=== PATIENT | male | born 1970 | race Caucasian/White ===

== ENCOUNTER → 2017-07-25 09:04 | Outpatient (CLI) | payer OTHER, SELFPAY ==
--- NOTE | 2017-07-25 09:07 | RAD_ITS ---
STUDY: X-RAY - RIGHT SHOULDER REASON FOR EXAM: Male, 47 years old. Right shoulder pain TECHNIQUE: 3 view(s) of the shoulder. COMPARISON: None. FINDINGS: Normal glenohumeral articulation. There is degenerative arthrosis of the acromioclavicular joint without inferior osseous spur formation. Normal acromion. Normal humeral head and visualized proximal humerus. The soft tissue structures are unremarkable. Normal visualized pulmonary apex. RAD/Shoulder min 2 Views IMPRESSION: There is degenerative arthrosis of the acromioclavicular joint. Electronically Signed: Yehuda Ga MD at 14:56 EDT Tel , Service support ,
== END ==
PROVIDERS: Family Provider Internal Medicine; PCP Internal Medicine; Visit Provider Orthopaedic Surgery
DX: M25.511 Pain in right shoulder (principal)
CPT/HCPCS: 73030

== ENCOUNTER 2019-05-19 13:14 | Emergency (ER) | payer OTHER, SELFPAY ==
[2019-05-19 13:15] VITALS: BP 109/73; PULSE 85; RESP 18; TEMP 39; O2SAT 94; BMI 36.1
[2019-05-19 13:21] VITALS: BP 130/77; PULSE 105; RESP 20; TEMP 39; O2SAT 98
--- NOTE | 2019-05-19 13:26 | EKG12_ITS ---
Test Reason : Blood Pressure : / mmHG Vent. Rate : 087 BPM Atrial Rate : 087 BPM P-R Int : 152 ms QRS Dur : 096 ms QT Int : 354 ms P-R-T Axes : 037 -39 033 degrees QTc Int : 425 ms Normal sinus rhythm Left axis deviation Abnormal ECG Confirmed by PAULINA MARES, DAVE ([id number]), business editor MONTSE GOOD ([id number]) on 05/21/2019 12:23:15 PM Referred By: CITLALLI Confirmed By:DAVE GALLARDO MD
--- NOTE | 2019-05-19 13:26 | RAD_ITS ---
STUDY: X-RAY CHEST REASON FOR EXAM: Male, 48 years old. cough, body aches/pain x 3 days TECHNIQUE: AP COMPARISON: 07/06/2014 FINDINGS: The lungs are clear and expanded. There is no demonstrated pleural abnormality. Normal size heart. Normal mediastinum and juana. Normal visualized pulmonary arteries. Normal visualized aortic arch and descending thoracic aorta. Normal visualized thoracic spine. Normal visualized ribs, clavicles, and shoulders. There is no demonstrated abnormality of the visualized soft tissue structures of the upper abdomen. RAD/Chest 1 View (Portable) IMPRESSION: Nonacute portable x-ray examination of the chest. Electronically Signed: Manjinder Cole MD (Brooks) at 13:55 EST , Service support ,
--- NOTE | 2019-05-19 13:28 | ED.DCSUM_ITS ---
History of Present Illness Chief Complaint: Weakness Detail of Chief Complaint: Flulike illness, syncope Informant: Patient Onset: Days Context: Gradual Onset Current Severity: Moderate Maximum Severity: Moderate Narrative: Patient presents with flulike illness that started 3 days ago. He states either Tuesday night or morning he started to feel ill. Symptoms have progressed over the past 2 days. He complains of generalized body aches, cough with brown sputum, fever and chills. He presents to the ED to be evaluated on Tuesday afternoon. Patient reportedly went to urgent care. He was feeling like he needed to lie down. He was called back to the room and shortly after standing and walking that the lewis patient a syncopal episode and woke on the floor. Patient admits that he has not been eating and drinking. He reports taking Aleve early this morning. Patient does report getting the flu vaccine this year. - Past Medical History (1) High cholesterol Status: Chronic Past Medical History - Allergies and Home Meds Allergies/Adverse Reactions: Allergies No Known Allergies Allergy (Verified 05/19/19 13:17) Primary Care Physician: Cecily Mejía MD [Primary Care Provider] - Prior records reviewed: Yes Lives: Spouse/ Significant Other Smoking Status: Unknown if ever smoked Review of Systems General: Reports: Chills, Fever Eyes: Denies: Visual changes - bilaterally ENT: Denies: Sore throat Cardiovascular: Denies: Chest pain Respiratory: Reports: Cough, Sputum Gastrointestinal: Denies: Vomiting, Diarrhea Genitourinary: Denies: Dysuria Musculoskeletal: Reports: Myalgias Skin: Denies: Rash Neurological: Reports: Headache, Weakness - Generalized weakness Hematologic: Denies: Easy bruising Allergy: Denies: Uticaria Physical Exam Vital Signs/Narrative: Vital Signs Temp Pulse Resp BP Pulse Ox 05/19/19 13:21 102.2 F H 105 H 20 H 130/77 H 98 05/19/19 13:15 102.2 F H 85 18 109/73 94 Inital Vital Signs reviewed: Yes General: Well nourished, Well developed Head: Normocephalic ENT: TM's clear, Dry mucous membranes, - - Normal posterior pharynx Neck: Supple Cardiovascular: Regular rate, Regular rhythm Respiratory: No distress, CTA bilaterally Abdomen: Soft, Nontender, Hypoactive bowel sounds Extremities: Nontender Skin: Normal color, No rash Neurological: Alert, Oriented x3 Psychological: - - Flat affect Diagnostic/Tx/Re-eval Impressions Chest X-Ray 05/19/19 13:26 IMPRESSION: Nonacute portable x-ray examination of the chest. Electronically Signed: Manjinder Cole MD (Brooks) at 13:55 EST , Service support , 05/19/19 13:26 Chest 1 View (Portable) [RAD] Stat 05/19/19 14:00 Mucosa - Nose Influenza Types A,B Direct FA (URSULA) - Final Influenzae A Laboratory Results 05/19/19 05/19/19 13:40 13:40 WBC 8.4 RBC 4.78 Hgb 14.7 Hct 43.0 MCV 90.0 MCH 30.8 MCHC 34.2 RDW Std Deviation 41.0 RDW Coeff of Mynor 12.3 Plt Count 163 MPV 9.2 Immature Gran % (Auto) 0.200 Neut % (Auto) 71.1 H Lymph % (Auto) 12.0 L [place] % (Auto) 14.3 H Eos % (Auto) 1.9 Baso % (Auto) 0.5 Absolute Neuts (auto) 6.0 Absolute Lymphs (auto) 1.01 Nucleated RBC % 0 Sodium 138 Potassium 3.7 Chloride 106 Carbon Dioxide 27.0 Anion Gap 5 BUN 11 Creatinine 1.34 H Estim Creat Clear Calc 68.85 Est GFR (MDRD) Af Amer 73 Est GFR (MDRD) Non-Af 60 BUN/Creatinine Ratio 8.2 L Glucose 106 Calcium 8.6 - EKG Initial EKG Interpretation: Sinus Rhythm - Sinus 87 with no acute ischemia. - Medical Decision Making Patient is given Tylenol, Toradol, and IV fluids. Repeat temperature is 99.6. Patient has currently had 1 L of IV fluid and and will receive a second full liter prior to discharge. Test results are discussed with patient and at bedside. He is outside the 48-hour window for antiviral treatment. He will continue supportive care. ED Disposition - Plan for ED Patient: Disposition: Home or Assisted Living Diagnosis: Influenza, Syncope Instructions: INFLUENZA (Adult), SYNCOPE, Vasovagal Referrals: Cceily Mejía MD [Primary Care Provider] - 3-5 Days if not improving
[2019-05-19] MEDS: 0.9% Normal Saline 1,000 ML 1000 ML IV ×2 (13:37→14:36)
[2019-05-19] MEDS: Acetaminophen 500 MG Tablet 1000 MG PO (13:37)
[2019-05-19] MEDS: Ketorolac 30 MG/ML Syringe IV (13:37)
[2019-05-19 13:45] LABS: Absolute Lymphocyte Count 1.01 X10^3/uL (0.83-4.51); Basophil# 0.04 X10^3/uL; Basophil% 0.5 % (0-1); Eosinophil# 0.16 X10^3/uL; Eosinophils% 1.9 % (0-5); Hemoglobin 14.7 g/dL (13.0-16.5); Lymphocyte # 1.01 X10^3/ul (4.0); Mean Corp Hgb Conc 34.2 g/dL (32-36); Mean Corpuscular Hgb 30.8 pg (27.0-32.0); Mean Platelet Vol. 9.2 fl (6.2-12.0); Monocyte% 14.3 % (0-10); NRBC Flagged by Analyzer 0 % (0-5); Neutrophil # 5.99 X10^3/uL (2.7-7.7); Neutrophil % 71.1 % (47-70); Platelet Count 163 K/mm3 (150-450); RBC Distribution Width CV 12.3 % (11.6-14.6); Red Blood Count 4.78 M/mm3 (4.6-6.2); White Blood Count 8.4 K/mm3 (4.4-11.0)
[2019-05-19 14:00] LABS: Anion Gap 5 (5-15); BUN 11 mg/dL (7-18); BUN/Creat Ratio 8.2 RATIO (10-20); Calcium,Total 8.6 mg/dL (8.5-10.1); Chloride 106 mmol/L (98-107); Creatinine, Serum 1.34 mg/dL (0.70-1.30); EST Glomerular Filtration Rate 60 mL/min (>60); Est Glom Filt Rate - Afr Amer 73 mL/min (>60); Estimated Creatinine Clearance 68.85 ml/min; Glucose 106 mg/dL (74-106); Potassium 3.7 mmol/L (3.5-5.1); Sodium Level 138 mmol/L (136-145)
[2019-05-19 14:37] VITALS: BP 123/66; PULSE 87; RESP 18; TEMP 37.6; O2SAT 94
[2019-05-19 15:52] VITALS: BP 118/71; PULSE 81; RESP 18; O2SAT 94
== END 2019-05-19 15:53 | disposition home or self-care (01) ==
PROVIDERS: Emergency Provider Emergency Medicine; PCP Internal Medicine
DX: J09.X2 Influenza due to identified novel influenza A virus with other respiratory manifestations (principal); R55 Syncope and collapse; E78.00 Pure hypercholesterolemia, unspecified; Z79.899 Other long term (current) drug therapy
CPT/HCPCS: 71045; 80048; 85025; 87804; 93005; 96361; 96374; 99285; J7030; A4216

== ENCOUNTER → 2019-11-08 | Outpatient (CLI) | payer OTHER, SELFPAY ==
--- NOTE | 2019-11-08 09:21 | EKG12_ITS ---
Test Reason : PRE OP Blood Pressure : / mmHG Vent. Rate : 061 BPM Atrial Rate : 061 BPM P-R Int : 140 ms QRS Dur : 092 ms QT Int : 412 ms P-R-T Axes : 027 -31 005 degrees QTc Int : 414 ms Normal sinus rhythm with sinus arrhythmia Left axis deviation Abnormal ECG Confirmed by SHANI MARES, LINETTE ([id number]), purchasing expeditor LAKIA OLIVEROS ([id number]) on 11/09/2019 9:10:03 AM Referred By: Gilmer Turner Confirmed By:ISIDRO MCLEOD MD
[2019-11-08 09:52] LABS: Absolute Lymphocyte Count 2.55 X10^3/uL (0.83-4.51); Absolute Neutrophil Count 5.9 X10^3/uL (2.0-7.7); Basophil# 0.09 X10^3/uL; Basophil% 0.9 % (0-1); Eosinophil# 0.26 X10^3/uL; Eosinophils% 2.6 % (0-5); Hematocrit 46.1 % (40-54); Hemoglobin 15.7 g/dL (13.0-16.5); Lymphocyte # 2.55 X10^3/ul (4.0); Lymphocyte % 25.6 % (19-41); Mean Corp Hgb Conc 34.1 g/dL (32-36); Mean Corpuscular Hgb 31.7 pg (27.0-32.0); Mean Corpuscular Volume 92.9 fL (80-94); Mean Platelet Vol. 9.2 fl (6.2-12.0); Monocyte# 1.09 X10^3/uL; Monocyte% 10.9 % (0-10); NRBC Flagged by Analyzer 0 % (0-5); Neutrophil # 5.92 X10^3/uL (2.7-7.7); Neutrophil % 59.5 % (47-70); Platelet Count 266 K/mm3 (150-450); RBC Distribution Width CV 12.9 % (11.6-14.6); RBC Distribution Width SD 43.8 fl (35.1-43.9); Red Blood Count 4.96 M/mm3 (4.6-6.2)
[2019-11-08 10:03] LABS: Anion Gap 4 (5-15); BUN 17 mg/dL (7-18); BUN/Creat Ratio 16.5 RATIO (10-20); Calcium,Total 8.7 mg/dL (8.5-10.1); Chloride 109 mmol/L (98-107); Creatinine, Serum 1.03 mg/dL (0.70-1.30); EST Glomerular Filtration Rate 81 mL/min (>60); Est Glom Filt Rate - Afr Amer 98 mL/min (>60); Glucose 98 mg/dL (74-106); Potassium 4.1 mmol/L (3.5-5.1); Sodium Level 140 mmol/L (136-145)
== END | disposition home or self-care (01) ==
LOC: LAB 09:10
PROVIDERS: PCP Internal Medicine; Referring Provider Physician Assistant; Visit Provider Physician Assistant
DX: Z01.818 Encounter for other preprocedural examination (principal)
CPT/HCPCS: 36415; 80048; 85025; 93005

== ENCOUNTER → 2019-11-15 | Outpatient (CLI) | payer OTHER, SELFPAY | END | disposition home or self-care (01) | LOC: MTDU 09:23 | PROVIDERS: PCP Internal Medicine; Visit Provider Physician Assistant | DX: Z11.59 Encounter for screening for other viral diseases (principal) | CPT/HCPCS: 87635; G2023; U0003 ==

== ENCOUNTER 2019-11-26 17:03 | Emergency (ER) | payer OTHER, SELFPAY ==
[2019-11-26 17:04] VITALS: BP 125/89; PULSE 79; RESP 17; TEMP 36.3; O2SAT 98; BMI 35.7
[2019-11-26] MEDS: 0.9% Normal Saline 1,000 ML 1000 ML IV (18:03)
--- NOTE | 2019-11-26 18:08 | EKG12_ITS ---
Test Reason : ABNORMAL LABS Blood Pressure : / mmHG Vent. Rate : 064 BPM Atrial Rate : 064 BPM P-R Int : 140 ms QRS Dur : 094 ms QT Int : 406 ms P-R-T Axes : 050 -32 037 degrees QTc Int : 418 ms Normal sinus rhythm Left axis deviation Abnormal ECG Confirmed by GUSTAVO MARES, SUNIL ([id number]), state editor MONTSE GOOD ([id number]) on 11/28/2019 10:59:16 AM Referred By: STARR Confirmed By:SUNIL CHEN MD
--- NOTE | 2019-11-26 18:08 | CT_ITS ---
STUDY: CTA CHEST REASON FOR EXAM: Male, 49 years old. SHORTNESS OF BREATH X 12 HOURS. RECENT SURGERY RADIATION DOSAGE (If Supplied By Facility): CTDIvol = ( 9.21 ) mGy, DLP = ( 538.19 ) mGycm TECHNIQUE: The examination was performed with the intravenous administration of IV 100mL Isovue-370. Post-processing of the angiographic images was performed, with multiplanar reformation and 3D reconstruction. Individualized dose optimization techniques were used for this CT. COMPARISON: None. FINDINGS: Normal enhancement of the main pulmonary artery and right and left pulmonary arteries. Normal enhancement of the bilateral peripheral pulmonary arteries. There is no demonstrated pulmonary embolism. Normal thoracic aorta and visualized great vessels. There is no demonstrated aortic dissection. Normal heart and pericardium. Normal mediastinum. Normal hilar regions. There is peribronchial thickening. The lungs are well expanded. Normal pulmonary parenchyma. Normal pleura. Normal chest wall structures. Normal osseous structures. Normal visualized upper abdomen. CT/CTA Chest W/WO Contrast IMPRESSION: No demonstrated PE, or thoracic aortic aneurysm or dissection No superimposed acute pulmonary process Evidence of chronic bronchitis Electronically Signed: Howard Herring MD at 19:38 EDT , Service support ,
[2019-11-26 18:48] LABS: Absolute Lymphocyte Count 2.59 X10^3/uL (0.83-4.51); Absolute Neutrophil Count 8.3 X10^3/uL (2.0-7.7); Basophil# 0.08 X10^3/uL; Basophil% 0.6 % (0-1); Eosinophil# 0.39 X10^3/uL; Eosinophils% 3.1 % (0-5); Hematocrit 46.5 % (40-54); Lymphocyte # 2.59 X10^3/ul (4.0); Lymphocyte % 20.5 % (19-41); Mean Corp Hgb Conc 34.4 g/dL (32-36); Mean Corpuscular Hgb 32.1 pg (27.0-32.0); Mean Corpuscular Volume 93.2 fL (80-94); Mean Platelet Vol. 9.4 fl (6.2-12.0); Monocyte# 1.18 X10^3/uL; Monocyte% 9.3 % (0-10); NRBC Flagged by Analyzer 0 % (0-5); Neutrophil # 8.27 X10^3/uL (2.7-7.7); Neutrophil % 65.5 % (47-70); Platelet Count 281 K/mm3 (150-450); RBC Distribution Width CV 12.5 % (11.6-14.6); RBC Distribution Width SD 42.5 fl (35.1-43.9); Red Blood Count 4.99 M/mm3 (4.6-6.2); White Blood Count 12.6 K/mm3 (4.4-11.0)
--- NOTE | 2019-11-26 18:53 | ED.DCSUM_ITS ---
- ER Visit Summary Date of Service: 11/26/19 Chief Complaint: Shortness of breath History of Present Illness: The patient is a [address] macdonald to. 5 days ago he had a left rotator cuff repair by Dr. griffin. Reports the 4:00 this morning he woke up short of breath. States it is moderate worsened mild currently. There is no change with exertion. Reports that he has had a constant chest pressure since that time is 2 out of 10 severity. Is increased with breathing. There is no change with walking. Nothing makes this better. Physical Examination: Vitals: Stable. Afebrile. General: Well-nourished and well-developed. Head: Normocephalic atraumatic. Neck: Supple, no lymphadenopathy. No JVD. Nontender. Cardiovascular: Regular rate and rhythm. No murmurs. Respiratory: No respiratory distress. Clear to auscultation bilaterally. Abdominal: Soft, nontender, nondistended, normal bowel sounds. No guarding, rebound, or peritoneal signs. Back: Nontender. Extremities: Nontender, no edema. Arthroscopic incisions over the left shoulder are clean, dry, intact. There is no erythema or evidence of infection. Skin: Normal color, no rash. Neurologic: Alert and oriented ?3. Cranial nerves II through XII are intact. Normal strength and sensation. Psych: Normal affect. Test Results: EKG sinus at [address] changes. Troponin is negative. CBC is remarkable for a white count of 12.6. Chem-7 is normal. Clinical Impression(s) from Imaging Studies Chest CTA 11/26/19 18:08 IMPRESSION: No demonstrated PE, or thoracic aortic aneurysm or dissection No superimposed acute pulmonary process Evidence of chronic bronchitis Electronically Signed: Howard Herring MD at 19:38 EDT , Service support , Emergency Department Course and Treatment: Patient is resting comfortably. He refused pain medications. Treatment Plan: Had a prolonged discussion with patient that some of his symptoms may be due to atelectasis. He was given incentive spirometer. He will be discharged with this instructed use it 10 times an hour while awake. Follow- up with his primary care physician in 3 to 5 days if not improving. Return to the emergency department for any worsening symptoms. Disposition: To home in improved and stable condition. Impression: 1. Dyspnea. 2. Atypical chest pain. 3. 5-day status post left rotator cuff repair. This note was generated with [employer] dictation software. It may contain incorrect words, spelling, and punctuation that were not noted in review of the chart prior to signing ED Disposition - Plan for ED Patient: Disposition: Home or Assisted Living Instructions: ED Dyspnea Referrals: Cecily Mejía MD [Primary Care Provider] - 3-5 Days
[2019-11-26 19:05] LABS: Anion Gap 3 (5-15); BUN 14 mg/dL (7-18); BUN/Creat Ratio 12.7 RATIO (10-20); Calcium,Total 8.9 mg/dL (8.5-10.1); Chloride 104 mmol/L (98-107); EST Glomerular Filtration Rate 75 mL/min (>60); Est Glom Filt Rate - Afr Amer 91 mL/min (>60); Estimated Creatinine Clearance 82.95 ml/min; Glucose 86 mg/dL (74-106); Potassium 5.1 mmol/L (3.5-5.1); Sodium Level 138 mmol/L (136-145)
[2019-11-26 20:02] VITALS: RESP 16; O2SAT 98
[2019-11-26 20:28] VITALS: BP 177/77; PULSE 70; RESP 16; O2SAT 96
== END 2019-11-26 20:28 | disposition home or self-care (01) ==
LOC: ED 18:24
PROVIDERS: Emergency Provider Emergency Medicine; PCP Internal Medicine
DX: R06.00 Dyspnea, unspecified (principal); R07.89 Other chest pain; Z98.890 Other specified postprocedural states
CPT/HCPCS: 71275; 80048; 84484; 85025; 93005; 96360; 96361; 99251; 99282; J7030; Q9967; A4216; G0463

== ENCOUNTER → 2020-03-19 16:11 | Outpatient (CLI) | payer OTHER, SELFPAY ==
--- NOTE | 2020-03-19 16:12 | MRI_ITS ---
STUDY: MRI LEFT SHOULDER REASON FOR EXAM: Male, 49 years old. left shoulder pain, h/o prior labrum repair pain since TECHNIQUE: Standardized fat and water weighted pulse sequences were obtained in all 3 orthogonal planes. COMPARISON: X-ray dated 03/11/2020. FINDINGS: Mild supraspinatus and infraspinatus tendinosis without rotator cuff tear. Normal subscapularis tendon. Normal teres minor tendon. No muscle atrophy. Mild intracapsular long biceps tendinosis. Biceps labral anchor intact. Superior labral anterior to posterior tear (coronal images 9 through 13 series 5) from the 10 o''clock to 2 o''clock positions. Capsular ligaments intact with mild thickening. Normal rotator cuff interval. Mild glenohumeral cartilage loss. Mild acromioclavicular joint arthrosis. Preserved acromiohumeral interval. No acute fracture. No acute dislocation. No acute bone destruction. Glenohumeral joint fluid physiologic. No significant subacromial subdeltoid fluid. Intact coracohumeral and coracoacromial ligaments. Normal quadrilateral space. Normal axillary space. Normal deltoid muscle. Normal trapezius muscle. MRI/Upper Ext Joint Only(Routine) IMPRESSION: SLAP type II tear (likely recurrent given history) Rotator cuff tendinosis without tear Capsular ligament thickening (early adhesive change) Mild glenohumeral and AC joint arthrosis Electronically Signed: Ulises Gaines DO at 12:02 EST Tel , Service support ,
== END ==
PROVIDERS: PCP Internal Medicine; Referring Provider Orthopaedic Surgery; Visit Provider Orthopaedic Surgery
DX: M75.02 Adhesive capsulitis of left shoulder (principal); M75.22 Bicipital tendinitis, left shoulder; Z98.890 Other specified postprocedural states
CPT/HCPCS: 73221

== ENCOUNTER 2020-05-06 16:00 | Outpatient (RCR) | payer OTHER, SELFPAY ==
--- NOTE | 2020-03-18 16:43 | HP.PTEVAL ---
Patient's Visit Information HOWARD MALONE is a 49 year old M referred to Physical Therapy by Dr. Eda Jerome DO with a diagnosis of L frozen shoulder. Date of Evaluation: 03/18/20 Physical Therapist: Ulises Romero, DPT, OCS, CSCS - Visit Plan Frequency: 2x /Week Duration: 4-6 Weeks Plan: Pt wanting to minimze visits before MRI results. Gave HEP of aggressive stretches and will f/u next week to get in pool if not better or progress to more aggressive ex if improving depending on MRI results. Next session measure and progress stretches, may need phase 3 strength, consider water therapy if not improving. - Subjective L shoulder surgery in October. He is L handed. Still has a ton of pain in shoulder and very stiff adn inflexible. Dr. Glaser did surgery. Last June could not raise arm or do push ups or planks. Surgery was for bursectomy and collarbone ectomy. Did not fix RC or labrum. L shoulder still hurts. Pain with taking shirt off. PT for [address] Li a week ago and diagnosed with frozen shoulder. Can't reach behind him real well. Can raise arms to 90 degrees but feels weak. Hurts alot with weights. Raising L arm involves scap as well as humerus. Pain is anteriorly and laterally. Will have MRI tomorrow. Pain is very little 1/10 at rest. Sleeping is hard. Reaching out and back to put on shirt is painful or rotating 7/10. Getting dressed is challenging. 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 Backing off of exercises has not helped. Hobbies: Enjoys biking but it hurts. Pt wants to keep therapy minimium until gets results of MRI. - Pain L shoulder Pain Intensity (Out of 10): 1 Pain Intensity Range: 0, 8 - Objective Forward head posture, slightly forward scap. symmetrical moving scap. Full cervical aROM. Full scap AROM B. R UE full AROM without pain. L shoulder ext rot40, IR 25 at 80 abd. 128 flexion and 125 abduction limited by pain and firm end feel. PROM similar to AROM with more pain when pushed. - ext rotation lag test. - drop arm test. Frim endfeel on PROM rotations and elevation. Strength L shoulder rotations 4- and R 4+. No pain. elevation 4- L and 4 R. bi and triceps 4 L and 4+ R no pain. Sensation UE WNL to gross light touch. Incisions healed well with only minor scar tissue. - Goals Goal 1:: 148 flexion aROM and 50 ext rotation and 60 IR at 80 to make life easier Goal Time Frame: 4-6 Weeks Goal 2:: Pt feel pain 2/10 at worst and 75% improved overall Goal Time Frame: 4-6 Weeks Goal 3:: Quick DASH 15 or less. Goal Time Frame: 4-6 Weeks Goal 4:: I appropr HEP to minimize future problems. Goal Time Frame: 4-6 Weeks - Rehabilitation Potential Physical Therapy Diagnosis: L frozen shoulder Rehabilitation Potential: Fair - Anticipated Interventions Patient/Client Instruction: Educate patient on: Condition, Plan of Care For the Purpose of:: To decrease pain, To increase ROM, To improve muscle performance and motor function, To increase tolerance to activity/condition/position Therapeutic Exercise to Include: Strength training, Postural training, Flexibilty training, In an aquatic setting, Passive ROM, Active ROM, Scapular Strength/Stabilization For the Purpose of:: To decrease pain, To increase ROM, To improve muscle performance and motor function, To increase tolerance to activity/condition/position Manual Therapy Techniques to Include: Mobilization, Passive ROM, Soft tissue mobilization For the Purpose of:: To decrease pain, To increase ROM, To improve muscle performance and motor function, To increase tolerance to activity/condition/position Thank you for the opportunity to evaluate your patient. For Medicare and Medicare HMO plans, please review the plan of care and approve it. It will need to be FAXED BACK to us at [phone] for Medicare purposes. For Medicare only, by signing this I certify the plan of care. Please let me know if there are questions or concerns regarding this plan of care. Physician Signature: Date:
--- NOTE | 2020-04-02 16:42 | HP.PTREVAL ---
Dr. Eda Jerome, DO, It has been my pleasure to treat HOWARD MALONE over the last 3 visits for L frozen shoulder. Please see the progress note below for an update on the physical therapy plan of care! Subjective: Uncomfy much of time but feels stetchy discomfort when moving it. Feels like motion is better except IR behind bck. Objective/Function: 145 flexion and abduction today with only slight scapular compensation L. 50 external rotation. IR still to PSIS behind back. After treatment today has 153 flexion and 150 abduction adn 55 external rotation and L5 IR with great effort. Overall Excellent progression with ROM and pain slowly improving with HEP. Plan Plan: Pt to doctor tomorrow for MRI results and then to PT next week for POC update(water vs manual etc). We have not had patient in water as he wanted to wait for regular therapy until after MRI but would be happy to put him in for water therapy if stilla ppropriate by doctor. That being said, he is making good progress with home ROM exercise and we plan to progress with strengthening depending on tolerance to today's aggressive ROM. Goals Goal 1:: 148 flexion aROM and 50 ext rotation and 60 IR at 80 to make life easier Goal Time Frame: 4-6 Weeks Goal 2:: Pt feel pain 2/10 at worst and 75% improved overall Goal Time Frame: 4-6 Weeks Goal 3:: Quick DASH 15 or less. Goal Time Frame: 4-6 Weeks Goal 4:: I appropr HEP to minimize future problems. Goal Time Frame: 4-6 Weeks Anticipated Interventions Patient/Client Instruction: Educate patient on: Condition, Plan of Care For the Purpose of:: To decrease pain, To increase ROM, To improve muscle performance and motor function, To increase tolerance to activity/condition/position Therapeutic Exercise to Include: Strength training, Postural training, Flexibilty training, In an aquatic setting, Passive ROM, Active ROM, Scapular Strength/Stabilization For the Purpose of:: To decrease pain, To increase ROM, To improve muscle performance and motor function, To increase tolerance to activity/condition/position Manual Therapy Techniques to Include: Mobilization, Passive ROM, Soft tissue mobilization For the Purpose of:: To decrease pain, To increase ROM, To improve muscle performance and motor function, To increase tolerance to activity/condition/position Please do not hesitate to contact me at [phone] by phone or if you have questions or concerns regarding this new plan of care! Sincerely, Ulises Romero, DPT, OCS, CSCS
--- NOTE | 2020-05-06 16:29 | HP.PTDCSUM ---
It has been my pleasure to treat HOWARD MALONE referred by Dr. Eda Jerome DO, with the diagnosis of L frozen shoulder for a total of 5 visit(s). Discharge Date: 05/06/20 Please see the following information for a summary of their discharge status. Subjective: No pain unless tretch aggressively. Has been working out doing jumping jacks , box steps, curls, planking, aerobics and can get a little sore with that. Doing 5 # to 90 degrees on the shoulders. Doing push ups from knees without pain or problem. stretching going well. Activities pretty normal, not avoiding activites except push ups. No f/u scheduled with doctor. L shoulder Pain Intensity (Out of 10): 1 % Improvement: 98 Objective/Function: Full aROM without pain, slight tightness end range of IR/ER. Otherwise good ROM and strength is symmetrical except ext rotation L slightly weaker than R at 4+ L and 5 R. Goal 1:: 148 flexion aROM and 50 ext rotation and 60 IR at 80 to make life easier Goal Progress: Goal Met Goal 2:: Pt feel pain 2/10 at worst and 75% improved overall Goal Progress: Goal Met Goal 3:: Quick DASH 15 or less. Goal Progress: Goal Met Goal 4:: I appropr HEP to minimize future problems. Goal Progress: Goal Met Plan: d/c to HEP , Pt doing very well adn will strengthen and progress on his own realizing the importance of weaning back to activities and listening to shoulder. Will f/u with doctor in 2-3 weeks. If there are questions or concerns regarding this patient's physical therapy, please feel free to call me at [phone]. Thank you for the referral of this patient. Sincerely, Ulises Romero, DPT, OCS, CSCS
== END 2020-05-06 19:00 | disposition home or self-care (01) ==
LOC: PT 16:00
PROVIDERS: PCP Internal Medicine; Referring Provider Orthopaedic Surgery; Visit Provider Orthopaedic Surgery
DX: M75.02 Adhesive capsulitis of left shoulder (principal)
CPT/HCPCS: 97110; 97140; 97161; 97164; 97530

== ENCOUNTER 2021-05-27 16:00 | Outpatient (RCR) | payer OTHER, SELFPAY ==
--- NOTE | 2021-05-04 14:58 | HP.PTEVAL_ITS ---
Patient's Visit Information HOWARD MALONE is a 50 year old M referred to Physical Therapy by Dr. Eda Jerome DO with a diagnosis of L IT band syndrome. Date of Evaluation: 04/27/21 Physical Therapist: Javier Guerrero DPT - Visit Plan Frequency: 1x/Week Duration: 4 Weeks Plan: Start with HS, IT band, and hip ER stretching. Add in glute med, glute max strengthening. - Subjective Pt. is here today for his initial evaluation with L IT band syndrome. Pt. reports having pain after running a lot last spring. He reports a gradual on set of lateral hip pain. He then stopped due to other issues and his hip pain started to improve. He was ridding his bike with less issues. He is hopeful to get back into running this coming spring. He does have intermittent issues in his L hip at times. He reports no pain at rest. He has a more sedentary job, and is not having issues at work. Denies N/T, no back pain, no radiating pain. Pain most located at posterior/lateral hip, occasional to mid thigh. He has tried some foam rolling, but not much change. He reports overall hopeful to reduce his hip pain and get back to running/working out without limitations. - Pain L lateral hip Pain Intensity (Out of 10): 2 Pain Intensity Range: 0, 5 - Objective POSTURE: Pt. has decent posture in stance. Pt. has slight increased anterior ro tation pelvis. No lateral shift or wt. shifting noted. PALPATION: Pt. has tenderness just lateral/posterior to greater trochanter. No distal IT band pain. Mild increase in symptoms at TFL muscle belly. No glute medius pain. NEURO: normal throughout. Normal sensation, normal DTR bilaterally. ROM: Pt. has decent ROM of R hip. Pt. has decreased hip ER, HS and IT band length. Pt. has normal hip Extension ROM bilat. Normal lumbar ROM bilat. MMT: Pt. has decent strength throughout BLEs. He does have decreased glute med strength 4+/5, hip extension 4+/5, hip ER/IR 4+/5. GAIT: Pt. has normal gait pattern, no increase in symptoms. - Special Tests L/S Slump test left side: Negative L/S Slump test right side: Negative L/S Left Straight Leg Raise: Negative L/S Right Straight Leg Raise: Negative Lumbar Standing: Flexion - Mechanical Response: No effect Lumbar Standing: Flexion - Symptoms During Testing: No effect Lumbar Standing: Flexion - Symptoms After Testing: No effect Lumbar Standing: Extension - Mechanical Response: No effect Lumbar Standing: Extension - Symptoms During Testing: No effect Lumbar Standing: Extension - Symptoms After Testing: No effect Lumbar Standing: Right Side Glides - Mechanical Response: No effect Lumbar Standing: Right Side [place] - Symptoms During Testing: No effect Lumbar Standing: Right Side [place] - Symptoms After Testing: No effect Lumbar Standing: Left Side [place] - Mechanical Response: No effect Lumbar Standing: Left Side [place] - Symptoms During Testing: No effect Lumbar Standing: Left Side [place] - Symptoms After Testing: No effect Lumbar Lying: Flexion - Mechanical Response: No effect Lumbar Lying: Flexion - Symptoms During Testing: No effect Lumbar Lying: Flexion - Symptoms After Testing: No effect Lumbar Lying: Extension - Mechanical Response: No effect Lumbar Lying: Extension - Symptoms During Testing: No effect Lumbar Lying: Extension - Symptoms After Testing: No effect L Hip Scour: Negative L Hip Quadrant - Intraarticular Pathology: Negative L Hip FADDIR - Labrum: Negative L Hip Trendelenberg - Glut Medius: Negative L Hip Ellis - IT Band: Positive - Balance/Special Test Scores Lower Extremity Functional Score: 60 - Goals Goal 1:: LTG: Pt. to be I with HEP for hip stretching and strengthening. Goal Time Frame: 4-6 Weeks Goal 2:: STG: Pt. to have increased tolerance to his job related activities. Goal Time Frame: 2-4 Weeks Goal 3:: LTG: Pt. to have 5/5 strength throughout L hip musculature. Goal Time Frame: 4-6 Weeks Goal 4:: LTG: pt. to have full L hip ROM including HS, IT band and hip ER without increase in symptoms. Goal Time Frame: 4-6 Weeks Goal 5:: LTG: pt. to be able to run and bike without increase in symptoms. Goal Time Frame: 4-6 Weeks - Rehabilitation Potential Physical Therapy Diagnosis: Pt. has signs and symptoms consistent with L IT band syndrome effecting pain at greater trochanter. Pt. has tightness noted in TFL, hip ER, and HS. Pt. has some light weakness in his glute med, hip ER/IR and hip extensors. He would benefit from PT address the tightness and weakness noted above. Rehabilitation Potential: Excellent - Anticipated Interventions Patient/Client Instruction: Educate patient on: Condition, Plan of Care, Risk Factors, Benefits of Fitness Program For the Purpose of:: To improve decision making, To facilitate caregiver knowledge, To improve self management, To prevent re-injury, To improve ability to perform tasks related to life management Therapeutic Exercise to Include: Strength training, Power training, Body mechanics, Postural training, Flexibilty training, Passive ROM, Active ROM For the Purpose of:: To decrease pain, To increase ROM, To increase oxygenation perfusion, To improve muscle performance and motor function, To improve health of tissue, To decrease soft tissue restriction, To increase flexibility/ROM Thank you for the opportunity to evaluate your patient. For Medicare and Medicare HMO plans, please review the plan of care and approve it. It will need to be FAXED BACK to us at [phone] for Medicare purposes. For Medicare only, by signing this I certify the plan of care. Please let me know if there are questions or concerns regarding this plan of care. Physician Signature: Date:
--- NOTE | 2021-05-28 11:39 | HP.PTREVAL ---
Dr. Eda Jerome, DO, It has been my pleasure to treat HOWARD MALONE over the last 3 visits for L IT band syndrome. Please see the progress note below for an update on the physical therapy plan of care! Subjective: Pt. reports overall doing okay. He reports being HEP compliant. He did have some soreness the other day, but has improved now. he is back to working out, mild increase in posterior hip pain bilaterally. Objective/Function: Pt. did well today. He does have good relief with IT band stretching. I want him to stretch both IT band an piriformis. But also focus on glute strengthening. He also has relief with manual to his piriformis, I recommended using a lacrosse ball or manual at home. Pt. consents. He is to follow up with physician in ~3 weeks. He is planning to continue with his exercises until then. He is able to follow up with PT if needed prior or with questions. He appears to have IT band syndrome with tight piriformis as well. I want him to work on stretching and add in glute max/med strengthening to reduce stress to the small stability musculature. Plan Plan: Pt. to trial new stretching and exercises with IT band, piriformis stretching. Add in glute strengthening including bridging, unilateral bridging, glute med strengthening. Pt. consents to this. pt. to follow up with physician in~3 weeks. Balance/Gait/Functional tests - Balance/Special Test Scores Lower Extremity Functional Score: 60 Goals Goal 1:: LTG: Pt. to be I with HEP for hip stretching and strengthening. Goal Time Frame: 4-6 Weeks Goal Progress: Goal Met Goal 2:: STG: Pt. to have increased tolerance to his job related activities. Goal Time Frame: 2-4 Weeks Goal Progress: Progressing Goal 3:: LTG: Pt. to have 5/5 strength throughout L hip musculature. Goal Time Frame: 4-6 Weeks Goal Progress: Progressing Goal 4:: LTG: pt. to have full L hip ROM including HS, IT band and hip ER without increase in symptoms. Goal Time Frame: 4-6 Weeks Goal Progress: Progressing Goal 5:: LTG: pt. to be able to run and bike without increase in symptoms. Goal Time Frame: 4-6 Weeks Goal Progress: Progressing Anticipated Interventions Patient/Client Instruction: Educate patient on: Condition, Plan of Care, Risk Factors, Benefits of Fitness Program For the Purpose of:: To improve decision making, To facilitate caregiver knowledge, To improve self management, To prevent re-injury, To improve ability to perform tasks related to life management Therapeutic Exercise to Include: Strength training, Power training, Body mechanics, Postural training, Flexibilty training, Passive ROM, Active ROM For the Purpose of:: To decrease pain, To increase ROM, To increase oxygenation perfusion, To improve muscle performance and motor function, To improve health of tissue, To decrease soft tissue restriction, To increase flexibility/ROM Please do not hesitate to contact me at [phone] by phone or if you have questions or concerns regarding this new plan of care! Sincerely, Javier Guerrero DPT
== END 2021-05-27 19:00 | disposition home or self-care (01) ==
LOC: PT 16:00
PROVIDERS: PCP Internal Medicine; Referring Provider Orthopaedic Surgery; Visit Provider Orthopaedic Surgery
DX: M76.30 Iliotibial band syndrome, unspecified leg (principal)
CPT/HCPCS: 97110; 97161

== ENCOUNTER 2024-01-06 15:58 | Emergency (ER) | payer OTHER, SELFPAY ==
[2024-01-06 15:59] VITALS: BP 163/140; PULSE 81; RESP 16; TEMP 35.9; O2SAT 97; BMI 29.8
--- NOTE | 2024-01-06 16:04 | EKG12_ITS ---
Test Reason : CHEST PAIN Blood Pressure : / mmHG Vent. Rate : 070 BPM Atrial Rate : 070 BPM P-R Int : 130 ms QRS Dur : 082 ms QT Int : 394 ms P-R-T Axes : 050 -13 051 degrees QTc Int : 425 ms Normal sinus rhythm with sinus arrhythmia Normal ECG Confirmed by Ravi Cardoso ([id number]), research editor JALEESA JOHNSON ([id number]) on 01/09/2024 11:16:09 AM Referred By: Confirmed By:Ravi Cardoso
[2024-01-06 16:23] LABS: Absolute Neutrophil Count 9.5 X10^3/uL (2.0-7.7); Basophil# 0.04 X10^3/uL; Basophil% 0.3 % (0-1); Eosinophil# 0.04 X10^3/uL; Eosinophils% 0.3 % (0-5); Hematocrit 42.3 % (40-54); Hemoglobin 14.4 g/dL (13.0-16.5); Lymphocyte % 11.1 % (19-41); Mean Corpuscular Hgb 30.8 pg (27.0-32.0); Mean Corpuscular Volume 90.4 fL (80-94); Mean Platelet Vol. 9.4 fl (6.2-12.0); Monocyte# 0.78 X10^3/uL; Monocyte% 6.7 % (0-10); NRBC Flagged by Analyzer 0 % (0-5); Neutrophil # 9.45 X10^3/uL (2.7-7.7); Neutrophil % 81.2 % (47-70); Platelet Count 247 K/mm3 (150-450); RBC Distribution Width CV 12.5 % (11.6-14.6); RBC Distribution Width SD 41.1 fl (35.1-43.9); Red Blood Count 4.68 M/mm3 (4.6-6.2); White Blood Count 11.7 K/mm3 (4.4-11.0)
--- NOTE | 2024-01-06 16:35 | RAD_ITS ---
INDICATION: chest pain EXAMINATION/TECHNIQUE: X-RAY - XR Chest 1 View COMPARISON: May 19, 2019 FINDINGS: LINES/DEVICES: None. LUNGS: No consolidation, edema or effusion. No pneumothorax. MEDIASTINUM AND CARDIOVASCULAR STRUCTURES: Cardiac silhouette not enlarged. Central airways and mediastinal contour are unremarkable. BONES AND SOFT TISSUES: Unremarkable. RAD/Chest 1 View (Portable) IMPRESSION: No radiographic evidence of acute cardiopulmonary disease. Electronically Signed: Aaron Osei DO at 17:06 EDT ,
[2024-01-06 16:46] LABS: Anion Gap 8 (5-15); BUN 19 mg/dL (7-18); BUN/Creat Ratio 16.8 RATIO (10-20); Calcium,Total 9.8 mg/dL (8.5-10.1); Chloride 106 mmol/L (98-107); Creatinine, Serum 1.13 mg/dL (0.70-1.30); EST Glomerular Filtration Rate 72 mL/min (>60); Est Glom Filt Rate - Afr Amer 87 mL/min (>60); Estimated Creatinine Clearance 86.15 ml/min; Glucose 102 mg/dL (74-106); Sodium Level 138 mmol/L (136-145); Troponin-I HS 7 pg/mL (3.0-78.0); Troponin-I HS (w/2H Reflex) 7 pg/mL (3.0-78.0)
--- NOTE | 2024-01-06 16:51 | EDS_ITS ---
HPI History of Present Illness Chief Complaint: Chest Pain Informant: patient Onset/Context/Timing Onset: Yesterday Activity at onset: activity on onset (cycling) Timing: Continuous Quality: Positive for Burning and Dull Location: Left Chest (w/ occ radiation into left periscapular area) Current Severity: Moderate Maximum Severity: Moderate Worsened By: Nothing; Not Worsened By Exertion, Movement of Arm, Movement of Torso, Palpation or Breathing Relieved By: Nothing Associated Symptoms: Positive for Dyspnea (mild); Negative for Nausea, Vomiting, Diaphoresis, Cough, Fever, Lightheadedness, Acid Reflux or Palpitations Narrative Narrative: 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 He states he was working to [employer] while he was cycling because he was exerting himself and exercising, however he did notice that early in his trip, he was more short of breath than he would expect for what he was doing at the time and is felt a little dyspneic since then. The discomfort is not gone away at all. He has noticed no alleviating or exacerbating factors. Denies any history of DVT or PE, leg pain or swelling recently, recent immobilization, hospitalization, or surgery. He has never had this before. He has had reflux in the past when he would overeat and states this feels different, patient states he takes medicine for hyperlipidemia and nothing else, and he lost 50 pounds in the past year or 2 due to exercising and changing his diet. There is a family history of heart disease in patients that have dropped suddenly. [facility] Medical History (Updated 01/06/24 @ 18:[address] Sachin Abernathy MD) High cholesterol Torn rotator cuff Retina disorder Home Medications ?Medication ?Instructions ?Recorded ?Last Taken ?Type atorvastatin 10 mg tablet 10 mg PO QHS 05/19/19 Unknown History cholecalciferol (vitamin D3) 25 1,000 unit PO DAILY 05/19/19 Unknown History mcg (1,000 unit) tablet multivitamin 1 ea PO DAILY 05/19/19 Unknown History acetaminophen 500 mg tablet 1,000 mg PO Q6H PRN PRN Pain Or 11/26/19 Unknown History Fever ezetimibe 10 mg tablet 10 mg PO DAILY 01/06/24 Unknown History rosuvastatin 40 mg tablet 40 mg PO DAILY 01/06/24 Unknown History Allergy/AdvReac Type Severity Reaction Status Date / Time No Known Allergies Allergy Verified 01/06/24 15:59 Surgical History History of arthroscopy of left shoulder Social History Smoking Status: Never smoker ROS ROS ED Constitutional Constitutional ED: Reports fatigue; Denies chills or fever(s) Eyes Eyes: Denies change in vision or diplopia ENT ENT ED: Denies rhinorrhea or sore throat Cardiovascular Cardiovascular: Reports as per HPI and chest pain; Denies palpitations Respiratory/Chest Respiratory/Chest: Reports dyspnea; Denies cough Gastrointestinal Gastrointestinal: Denies abdominal pain, diarrhea, nausea or vomiting Genitourinary Genitourinary ED: Denies dysuria or hematuria Musculoskeletal Musculoskeletal: Denies back pain or neck pain Integumentary Denies abscess or rash Neurologic Neurologic: Denies headache(s), paresthesias or weakness Psychiatric Psychiatric: Denies anxiety or suicidal thoughts EXAM Physical Exam Const Vital Signs: 01/06/24 15:59 01/06/24 16:04 01/06/24 16:30 Temperature 96.6 F L Temperature Source Temporal Pulse Rate 81 Respiratory Rate 16 Respiratory Effort Normal Non-Labored Blood Pressure 163/140 H Blood Pressure Mean 147 Pulse Ox 97 Oxygen Delivery Method Room Air Room Air 01/06/24 16:58 Temperature Temperature Source Pulse Rate 73 Respiratory Rate 10 L Respiratory Effort Blood Pressure Blood Pressure Mean Pulse Ox 97 Oxygen Delivery Method Room Air Positive well nourished and well developed General Appearance ED: well developed and NAD HEENT Reports moist mucous membranes normocephalic and atraumatic Eyes PERRL and EOMs intact bilaterally Neck full ROM and supple Chest Wall inspection of chest normal and palpation of chest normal Resp normal respiratory effort and clear to auscultation bilaterally Cardio regular rate, regular rhythm and no murmurs GI non-tender and non-distended Auscultation: normoactive bowel sounds Palpation: soft Back/Spine no CVA tenderness General Back: other FROM Extremity normal to inspection General Extremety ED: Negative for edema, pulses abnormal or tenderness General Extremity: Negative for edema or pulses abnormal Neuro oriented x3, CN's II-XII intact bilaterally and no sensory deficits noted Sensorium / Orientation: awake and alert Motor Exam: strength 5/5 throughout Psych mental status grossly normal Skin no rashes or lesions noted and no wounds Heart Score History: Slightly/Non-Suspicious ECG: Normal Age: >45 - <65 years Risk Factors: 1 or 2 Risk Factors Troponin: </= Normal Limit Score: 2 MDM MDM MDM Narrative Medical decision making narrative: Differential includes acute coronary syndrome, pericarditis, pleurisy, although he does not have painful respirations, pulmonary embolus, GI/esophageal etiologies, musculoskeletal etiologies. Chest x-ray 2 views of my interpretation normal, radiology in agreement. His EKG is normal, his troponin is in the single digits after having discomfort for almost 24 hours. Given that I do not think he needs a repeat measurement. I did do a D-dimer since I do not have an objective etiology for his symptoms, it is negative ruling out pulmonary embolus, and he meets Wells criteria for being low risk for PE. At this time I am comfortable with the patient being discharged home. He may try antiacids or other esophageal treatments. 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 I think it is reasonable for him to follow-up. He has not had an echo before. He is not having exertional syncope or presyncope or angina, so I do not think he needs to be admitted to have 1 emergently. Lab Data Attestation: I reviewed the patient's lab results. Labs: Laboratory Results - last 24 hr 01/06/24 16:09 WBC 11.7 H RBC 4.68 Hgb 14.4 Hct 42.3 MCV 90.4 MCH 30.8 MCHC 34.0 RDW Std Deviation 41.1 RDW Coeff of [place] 12.5 Plt Count 247 MPV 9.4 Immature Gran % (Auto) 0.400 Neut % (Auto) 81.2 H Lymph % (Auto) 11.1 L [place] % (Auto) 6.7 Eos % (Auto) 0.3 Baso % (Auto) 0.3 Absolute Neuts (auto) 9.5 H Absolute Lymphs (auto) 1.30 Nucleated RBC % 0 D-Dimer Quant (PE/DVT) < 0.27 L Sodium 138 Potassium 4.0 Chloride 106 Carbon Dioxide 24.0 Anion Gap 8 BUN 19 H Creatinine 1.13 Estim Creat Clear Calc 86.15 Est GFR (MDRD) Af Amer 87 Est GFR (MDRD) Non-Af 72 BUN/Creatinine Ratio 16.8 Glucose 102 Calcium 9.8 Troponin I High Sens 7 Radiography Diagnostic Testing: Clinical Impression(s) from Imaging Studies Chest X-Ray 01/06/24 16:35 IMPRESSION: No radiographic evidence of acute cardiopulmonary disease. Electronically Signed: Aaron Osei DO at 17:06 EDT Reading Location ID and State: [facility] / [place] Tel [phone], Service support , Rhythm Strip Rhythm Strip: Sinus Rhythm Rate: 70 Ectopy: None EKG Initial EKG: Attestation: I personally reviewed and interpreted this EKG as follows: Interpretation: Sinus Rhythm and No Acute Injury Pattern Comments: Normal EKG Prior EKG tracings: available for review Prior: Unchanged Discharge Plan Triage Chief Complaint: Chest Pain ED Provider: Sachin Abernathy Dx/Rx/DC Orders Clinical Impression: Left-sided chest pain Instructions: ED Chest Pain, Uncertain Cause Prescriptions: No Action multivitamin 1 EACH tablet 1 ea PO DAILY atorvastatin 10 MG tablet 10 mg PO QHS cholecalciferol (vitamin D3) 1,000 UNIT tablet 1,000 unit PO DAILY acetaminophen 500 MG tablet 1,000 mg PO Q6H PRN PRN (Reason: Pain Or Fever) ezetimibe 10 mg tablet 10 mg PO DAILY rosuvastatin 40 mg tablet 40 mg PO DAILY Primary Care Provider: Cecily Mejía Referrals: Cecily Mejía MD [Primary Care Provider] - As soon as possible (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
[2024-01-06 16:58] VITALS: PULSE 73; RESP 10; O2SAT 97
[2024-01-06 17:18] LABS: D-Dimer Quantitative (DVT/PE) < 0.27 FEU/ug/m (0.27-0.49)
[2024-01-06 18:00] VITALS: PULSE 81; RESP 18; O2SAT 98
[2024-01-06 18:12] LABS: Reflex Troponin-HS? (from REC) Y
[2024-01-06 18:19] VITALS: BP 121/86; PULSE 74; RESP 18; TEMP 36.6; O2SAT 98
== END 2024-01-06 18:24 | disposition home or self-care (01) ==
PROVIDERS: Emergency Provider Emergency Medicine; PCP Internal Medicine; Visit Provider Emergency Medicine
DX: R07.89 Other chest pain (principal); R06.02 Shortness of breath; E78.00 Pure hypercholesterolemia, unspecified; Z79.899 Other long term (current) drug therapy
CPT/HCPCS: 71045; 80048; 84484; 85025; 85379; 93005; 99283; A4216

== ENCOUNTER 2024-08-20 16:00 | Outpatient (RCR) | payer OTHER, SELFPAY ==
--- NOTE | 2024-04-10 07:48 | HP.PTEVAL ---
Patient's Visit Information Visit Information Visit Information: HOWARD MALONE is a 53 year old M referred to Physical Therapy by Dr. Eda eJrome DO with a diagnosis of R RTC repair, biceps tenodesis, DOS: 03/13/24. Date of Evaluation: 04/06/24 Physical Therapist: Javier Guerrero DPT Visit Plan Frequency: 2-3x /Week Duration: 3 Months Plan: 1) PROM of R shoulder, limit ER to 40deg., Progress per protocol. No active elbow flexion 2) ice as needed for pain control. Focus on ROM initially. IE HEP: pendulums, table walk away, seated ER wand gentle, passive elbow flexion. Subjective Subjective: Pt. is here today for his initial evaluation with diagnosis of R RTC repair with biceps tenodesis. DOS: 03/13/24. Pt. arrives with sling in place. Pt. reports having increased pain. He does also reports being very cautious about his arm as well. Pt. is having difficulty sleeping secondary to pain. Pt. has done some pendulums, but not much else. No N/T noted. Pt. is an avid cyclist and would like to get back to this. 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 Pt. would like to get back to all activities as previously without limitations. Pain R shoulder: Pain Intensity (Out of 10): 4 Pain Intensity Range: 2 and 8 Objective Objective: POSTURE: Pt. has slight FH posture and keeps R UE is guarded posture across stomach. B shoulders in slight anterior positioning. PALPATION: Pt. has well healing incisions. No signs of infection. Pt. is tender at biceps incision, but not major issues noted. NEURO: Pt. has normal sensations. DTR bot tested. ROM: R elbow: PROM: flexion 130deg, ext lacking 5 deg. R shoulder; PROM: flexion 75deg, abd 45deg. ER at 30deg of abd 10deg. Pt. has difficulty relaxing and allowing his shoulder to move. Did better with increased ROM. MMT: RUE: DNT. LUE: 5/5 throughout. Balance/Special Test Scores Quick DASH Score: 68.1800 Goals Goal 1:: LTG: PT. to be I with HEP. Goal Time Frame: 4-6 Weeks Goal 2:: STG: Pt. to sleep throughout the night without increase in symptoms of R shoulder. Goal Time Frame: 2-4 Weeks Goal 3:: STG: Pt. to have full PROM of R shoulder without increase in symptoms. Goal Time Frame: 2-4 Weeks Goal 4:: LTG: Pt. to have full AROM of R shoulder without increase in symptoms. Goal Time Frame: 4-6 Weeks Goal 5:: LTG: Pt. to have symmetrical strength of BUE allowing for increased ability to complete all ADLs and recreational activities. Goal Time Frame: 8-12 Weeks Rehabilitation Potential Physical Therapy Diagnosis: Pt. has signs and symptoms consistent with R RTC repair and biceps tenodesis. DOS: 03/13/24. PT. has marked hypomobility, weakness, increased pain and difficulty with ADLs. PT. would benefit from PT to address mesha above limitations progressing back to all previous levels of mobility. Rehabilitation Potential: Excellent Anticipated Interventions Patient/Client Instruction: Educate patient on: Condition, Plan of Care, Risk Factors and Benefits of Fitness Program For the Purpose of:: To improve decision making, To facilitate caregiver knowledge, To improve self management, To prevent re-injury, To improve ability to perform tasks related to life management and To improve tolerance to ADL's Therapeutic Exercise to Include: Strength training, Power training, Endurance training, Postural training, Flexibilty training, Passive ROM, Active ROM and Scapular Strength/Stabilization For the Purpose of:: To decrease pain, To decrease swelling/inflammation, To increase ROM, To improve nutrient delivery to tissue, To increase oxygenation perfusion, To improve muscle performance and motor function, To improve ability to perform ADL's, To increase tolerance to activity/condition/position, To improve health of tissue, To decrease soft tissue restriction and To increase flexibility/ROM Manual Therapy Techniques to Include: Scar massage, Mobilization and Passive ROM For the Purpose of:: To decrease pain, To decrease swelling/inflammation, To increase ROM, To improve nutrient delivery to tissue, To increase oxygenation perfusion, To improve muscle performance and motor function, To improve ability to perform ADL's, To increase tolerance to activity/condition/position, To improve health of tissue, To decrease soft tissue restriction and To increase flexibility/ROM Thermo therapy (hot pack): Yes Ultrasound (thermal/non thermal): Yes For the Purpose of:: To decrease pain, To decrease swelling/inflammation, To increase ROM and To improve nutrient delivery to tissue Text: Thank you for the opportunity to evaluate your patient. For Medicare and Medicare HMO plans, please review the plan of care and approve it. It will need to be FAXED BACK to us at [phone] for Medicare purposes. For Medicare only, by signing this I certify the plan of care. Please let me know if there are questions or concerns regarding this plan of care. Physician Signature: Date:
== END 2024-08-20 19:00 | disposition home or self-care (01) ==
LOC: PT 16:00
PROVIDERS: PCP Internal Medicine; Referring Provider Orthopaedic Surgery; Visit Provider Orthopaedic Surgery
DX: S46.011D Strain of muscle(s) and tendon(s) of the rotator cuff of right shoulder, subsequent encounter (principal); M75.51 Bursitis of right shoulder; M25.511 Pain in right shoulder; M25.819 Other specified joint disorders, unspecified shoulder
CPT/HCPCS: 97110; 97140; 97161